=== PATIENT | male | born 1990 | race Caucasian/White ===

== ENCOUNTER 2016-05-30 21:32 | Emergency (ER) | payer MEDICAID ==
[~2016-05-30] VITALS: Ht 175.3 cm; Wt 104.0 kg
[2016-05-30] MEDS ORDERED: SODIUM CHLORIDE 0.9% 1,000 ML IV ONE ×2 (22:41)
[2016-05-30 23:06] LABS: BASOPHILS % 0.3 % (0.0-2.0); EOSINOPHILS % 0.1 % (0.0-5.0); HEMATOCRIT. 42.1 % (42.0-52.0); HEMOGLOBIN. 14.3 g/dL (14.0-18.0); LYMPHOCYTES % 14.2 % (20.0-50.0); MEAN CORPUSCULAR HEMOGLOBIN 27.4 pg (28.0-32.0); MEAN CORPUSCULAR HGB CONC 33.9 g/dL (31.0-37.0); MEAN CORPUSCULAR VOLUME 80.7 fL (80.0-94.0); MEAN PLATELET VOLUME 8.6 fl (7.4-10.4); MONOCYTES % 6.7 % (2.0-8.0); NEUTROPHILS % 78.7 % (40.0-76.0); PLATELET 319 x1000/uL (130-400); RED BLOOD CELL COUNT 5.21 mill/uL (4.7-6.1); RED CELL DISTRIBUTION WIDTH 13.4 % (11.6-14.6); WHITE BLOOD COUNT 12.4 x1000/uL (4.5-11.0)
[2016-05-30 23:09] LABS: CHLORIDE 99 mEq/L (98-107); INDEX HEMOLYSI 1 (1-3); INDEX ICTERIC 1 (1-4); INDEX LIPEMIC 1 (1-3)
[2016-05-30 23:11] LABS: ALBUMIN 4.4 g/dL (3.4-5.0); ANION GAP 13; CALCIUM 9.3 mg/dL (8.5-10.1); CARBON DIOXIDE 29 mEq/L (21-32); LIPASE 99 IU/L (73-393); MAGNESIUM 2.2 mg/dL (1.8-2.4); UREA NITROGEN BLOOD 12 mg/dL (7-21)
[2016-05-30 23:15] LABS: ALANINE AMINOTRANSFERASE 128 IU/L (13-61); BETA HYDROXYBUTYRATE 0.5 mMol/L (0.0-0.3); PHOSPHORUS 2.8 mg/dL (2.5-4.9); eGFR > 60 mL/min (>60)
[2016-05-30 23:52] LABS: CLARITY URINE CLEAR (CLEAR); COLOR URINE YELLOW (YELLOW); GLUCOSE URINE NEGATIVE (NEGATIVE); KETONES URINE 1+ (NEGATIVE); LEUKOCYTE ESTERASE URINE NEGATIVE (NEGATIVE); NITRITE URINE NEGATIVE (NEGATIVE); OCCULT BLOOD URINE TRACE (NEGATIVE); PROTEIN URINE TRACE (NEGATIVE); SPECIFIC GRAVITY URINE 1.007 (1.005-1.030); UROBILINOGEN URINE 0.2 E.U./dL (0.2-1.0)
[2016-05-31 00:21] LABS: MUCUS URINE TRACE /lpf (NONE/TRACE); WBC URINE 0-2 /hpf (0-2)
[2016-05-31 00:22] LABS: BACTERIA URINE TRACE; RBC URINE 0-2 /hpf (0-2); SQUAMOUS EPITHELIAL CELL URINE RARE /lpf (RARE/1+)
[2016-05-31 02:50] VITALS: BP 144/81
== END 2016-05-31 02:54 | disposition home or self-care (01) ==
LOC: ER 21:43
DX: F41.9 Anxiety disorder, unspecified (principal); R00.0 Tachycardia, unspecified; R73.03 Prediabetes
CPT/HCPCS: 36415; 71010; 80053; 81001; 82010; 82962; 83690; 83735; 84100; 85025; 93005; 96360; 96361; 99285; J7030; Z7610

== ENCOUNTER 2016-05-31 05:47 | Emergency (ER) | payer MEDICAID | END 2016-05-31 06:34 | disposition left against medical advice (07) | LOC: ER 05:47 | DX: R73.9 Hyperglycemia, unspecified (principal); Z53.21 Procedure and treatment not carried out due to patient leaving prior to being seen by health care provider | CPT/HCPCS: 82962 ==